=== PATIENT | female | born 1995 | race Caucasian/White ===

== ENCOUNTER 2024-05-20 19:53 | Day surgery (SDC) | payer OTHER ==
[2024-05-20] MEDS ORDERED: hydrALAZINE 20 MG/ML VIAL SLOW IVP PRN (20:33)
[2024-05-20 20:41] VITALS: BMI 29.0
== END 2024-05-20 21:50 | disposition home or self-care (01) ==
LOC: CSHLD/OP 19:53
PROVIDERS: ATTEND Obstetrics & Gynecology
DX: O36.8130 Decreased fetal movements, third trimester, not applicable or unspecified (principal); Z3A.37 37 weeks gestation of pregnancy; Z98.890 Other specified postprocedural states; Z79.899 Other long term (current) drug therapy
CPT/HCPCS: 76819; 99282

== ENCOUNTER 2024-06-13 21:18 | Inpatient (IN) | payer OTHER ==
[2024-06-14 00:53] VITALS: BMI 31.6
[2024-06-14 02:27] LABS: Hematocrit 36.8 % (34.9-44.5); Hemoglobin 12.2 g/dL (12.0-15.5); Mean Corpuscular HGB CONC 33.2 g/dL (32.0-36.0); Mean Corpuscular Hemoglobin 29.1 pg (27.0-33.0); Mean Corpuscular Volume 87.8 fL (81.6-98.3); Mean Platelet Volume 11.6 fL (7.4-10.4); Platelet Count 255 10x3/uL (150-450); RBC Distribution Width 12.9 % (11.5-14.5); Red Blood Cell (RBC) Count 4.19 10x6/uL (3.90-5.03); White Blood Cell (WBC) Count 13.4 10x3/uL (3.5-10.5)
[2024-06-14] MEDS ORDERED: fentaNYL 50 mcg/mL 1 mL Vial SLOW IVP PRN (02:35)
[2024-06-14] MEDS ORDERED: Tranexamic Acid 1,000 MG/10 ML VIAL IVP PRN (02:38)
[2024-06-14] MEDS ORDERED: Acetaminophen 500 MG TAB PO PRN (02:45)
[2024-06-14] MEDS ORDERED: Methylergonovine 0.2 MG/ML VIAL IM PRN ×2 (02:45→16:45)
[2024-06-14] MEDS ORDERED: Carboprost 250 MCG/ML AMP IM PRN (02:45)
[2024-06-14] MEDS ORDERED: hydrALAZINE 20 MG/ML VIAL SLOW IVP PRN ×3 (02:45→16:47)
[2024-06-14] MEDS ORDERED: Misoprostol 200 MCG TAB RC PRN (02:45)
[2024-06-14] MEDS ORDERED: Diphenoxylate HCl/Atropine Tablet PO PRN (02:45)
[2024-06-14] MEDS ORDERED: Oxytocin 30 units/NS 500 ML 500 ML IV SCH ×2 (02:45)
[2024-06-14] MEDS ORDERED: Oxytocin 30 units/NS 500 ML 500 ML IVPB SCH (02:45)
[2024-06-14] MEDS ORDERED: Promethazine HCl 25 MG/ML VIAL IM PRN ×2 (02:45→10:38)
[2024-06-14] MEDS: Misoprostol 100 MCG TAB VAG SCH (02:48)
[2024-06-14 02:50] LABS: HBsAg Index 0.19 S/CO (0-0.99); Hep B Surf Ag - L&D Non-Reactive S/CO (NonReactive)
[2024-06-14 02:51] LABS: Syphilis Antibody Nonreactive (Nonreactive); Syphilis Antibody Index 0.06 S/CO (<1.00 Non-Reactive)
[2024-06-14] MEDS ORDERED: Lidocaine 1% (PF) 30 ML VIAL SC PRN (03:00)
[2024-06-14] MEDS ORDERED: Bupivacaine 0.25% HCL 30 ML VIAL ONE (07:00)
[2024-06-14] MEDS ORDERED: ePHEDrine Sulfate 50 MG/10 ML VIAL ONE (07:00)
[2024-06-14] MEDS: fentaNYL/Ropivacaine Epidural 100 ML ONE (10:25)
[2024-06-14] MEDS ORDERED: Moisturizing Cream (Eucerin) 113 GM JAR TOP PRN (10:38)
[2024-06-14] MEDS ORDERED: Acetaminophen 325 MG TAB PO PRN (10:38)
[2024-06-14] MEDS ORDERED: diphenhydrAMINE 50 MG/ML VIAL IVP PRN (10:38)
[2024-06-14] MEDS ORDERED: Naloxone HCl 0.4 mg/ml Vial IVP PRN ×2 (10:38)
[2024-06-14] MEDS ORDERED: Lactated Ringer's 500 ML IV PRN (10:38)
[2024-06-14] MEDS ORDERED: ePHEDrine Sulfate 50 MG/10 ML VIAL SLOW IVP PRN (10:38)
[2024-06-14] MEDS ORDERED: Ondansetron PF 4 MG/2 ML Vial IVP PRN ×2 (10:38→16:45)
[2024-06-14] MEDS ORDERED: fentaNYL 2 mcg/Ropivacaine 0.2% Epidural 100 ML CADD EPIDURAL SCH (10:45)
[2024-06-14] MEDS ORDERED: Communication Order-Pharmacy FS SCH (10:45)
[2024-06-14] MEDS: Ondansetron PF 4 MG/2 ML Vial IVP PRN (11:50)
[2024-06-14] MEDS ORDERED: Misoprostol 200 MCG TAB VAG PRN (16:44)
[2024-06-14] MEDS ORDERED: Milk Of Magnesia 30 ML UDCUP PO PRN (16:45)
[2024-06-14] MEDS ORDERED: diphenhydrAMINE 25 MG CAP PO PRN (16:45)
[2024-06-14] MEDS ORDERED: Oxytocin 30 units/NS 500 ML 1,000 ML IV SCH (16:45)
[2024-06-14] MEDS ORDERED: Zolpidem Tartrate 5 MG TAB PO PRN (16:45)
[2024-06-14] MEDS ORDERED: Bisacodyl 10 MG SUPP PR PRN (16:45)
[2024-06-14] MEDS ORDERED: Boostrix 0.5 ML (Tdap) VIAL (>/=7 yrs of age) IM SCH (16:45)
[2024-06-14] MEDS ORDERED: Preparation H Ointment 28 GM TUBE PR PRN (16:45)
[2024-06-14] MEDS: HYDROcodone/Acetaminophen 5/325 mg Tablet PO PRN (16:53)
[2024-06-14] MEDS: Benzocaine-Menthol 82.5 ML CAN TOP PRN (19:30)
[2024-06-14] MEDS: Lactated Ringer's 1,000 ML IV SCH (19:32)
[2024-06-14] MEDS: Ibuprofen 800 MG TAB PO SCH (19:50)
[2024-06-14] MEDS: Docusate 100 MG CAP PO SCH (19:50)
[2024-06-14] MEDS: Ferrous Sulfate 325 MG TAB PO SCH (19:53)
[2024-06-15 04:11] LABS: Hemoglobin 8.6 g/dL (12.0-15.5)
[2024-06-15] MEDS: HYDROcodone/Acetaminophen 5/325 mg Tablet PO PRN (06:00)
[2024-06-15] MEDS: Prenatal Vitamin 1 TAB PO SCH (09:28)
[2024-06-16 08:04] VITALS: BP 115/61; TEMP 98.4
== END 2024-06-16 13:05 | disposition home or self-care (01) | DRG 768 ==
LOC: UNDOADMIN 21:18 → CSHLD 21:18 → CSHPP 06-14 17:15
PROVIDERS: ADMIT Obstetrics & Gynecology; ATTEND Obstetrics & Gynecology
PROC: 10E0XZZ Delivery of Products of Conception, External Approach (ICD-10-PCS; principal; 2024-06-14)
PROC: 0DQP0ZZ Repair Rectum, Open Approach (ICD-10-PCS; 2024-06-14)
DX: O41.03X0 Oligohydramnios, third trimester, not applicable or unspecified (principal); Z37.0 Single live birth; O70.3 Fourth degree perineal laceration during delivery; O48.0 Post-term pregnancy; Z3A.40 40 weeks gestation of pregnancy
CPT/HCPCS: 36415; 51702; 85014; 85018; 85027; 86780; 86850; 86900; 86901; 87340; 99285; J0665; J2405